=== PATIENT | male | born 1995 | race Caucasian/White ===

== ENCOUNTER 2017-03-24 09:52 | Emergency (ER) | payer OTHER ==
[~2017-03-24] VITALS: Ht 188 cm; Wt 66.0 kg
[2017-03-24 09:55] VITALS: BP 123/74; PULSE 82; RESP 16; TEMP 98.7; O2SAT 100
--- NOTE | 2017-03-24 10:47 | PD ---
HPI Chief Complaint: Cold / Flu Symptoms Time Seen by Provider: 10:39 Travel History International Travel<30 days: No Contact w/Intl Traveler<30days: No Traveled to known affect area: No History of Present Illness HPI Patient comes to the emergency department complaining of cough and congestion that started last night. Patient reports his son and mother are home with similar. Patient denies any fevers, nausea, vomiting, chest pain, headache, sore throat, abdominal pain, shortness of breath, neck pain, or back pain. Patient has not tried anything for this. Denies anything making it better or worse. Denies any pain. PFSH Past Medical History ADHD: Yes Cancer: No Cardiovascular Problems: No Diabetes: No Diminished Hearing: No Psychiatric: Yes (ADHD BY HX) Immunizations Current: Yes Migraines: No Seizures: No Thyroid Disease: No Ulcer: No Influenza Vaccination: No Past Surgical History Appendectomy: No Cholecystectomy: No Social History Alcohol Use: No Tobacco Use: Yes (02/18 PPD) Substance Use: Yes (marijuana) Allergies-Medications (Allergen,Severity, Reaction): Coded Allergies: ziprasidone (Unverified Allergy, Severe, NAUSEA, 03/24/17) Reported Meds & Prescriptions Reported Meds & Active Scripts Active Prednisone 20 Mg Tab 20 Mg PO BID 5 Days Ventolin Hfa 18 GM Inh (Albuterol Sulfate) 90 Mcg/Act Aer 2 Puff INH Q4H PRN Review of Systems Except as stated in HPI: all other systems reviewed are Neg Physical Exam Narrative GENERAL: Well-developed, well nourished, in no acute distress, and non-ill appearing. SKIN: Focused skin assessment warm and dry. HEAD: Atraumatic. Normocephalic. EYES: Pupils equal and round. EOMI. No scleral icterus. No injection or drainage. ENT: No nasal bleeding or discharge. Mucous membranes pink and moist. Tympanic membrane pearly south bilaterally. Posterior pharynx nonerythematous without exudate. Uvula is midline. No tenderness facial sinuses to palpation. NECK: Trachea midline. No cervical lymphadenopathy. Supple. No nuclear rigidity. CARDIOVASCULAR: Regular rate and rhythm. No murmur appreciated. RESPIRATORY: No accessory muscle use. No respiratory distress. Clear to auscultation. Breath sounds equal bilaterally. No coughing noted on exam. Patient speaking in full sentences without difficulty. MUSCULOSKELETAL: No obvious deformities. No clubbing. No cyanosis. No edema. Full range of motion. NEUROLOGICAL: Awake and alert. No obvious cranial nerve deficits. Motor grossly within normal limits. Normal speech. PSYCHIATRIC: Appropriate mood and affect; insight and judgment normal. Data Data Last Documented VS Vital Signs Date Time Temp Pulse Resp B/P (MAP) Pulse Ox O2 Delivery O2 Flow Rate FiO2 03/24/17 10:31 Room Air 03/24/17 09:55 98.7 82 16 123/74 (90) 100 Orders Orders Ed Discharge Order (03/24/17 11:08) [facility] Medical Decision Making Medical Screen Exam Complete: Yes Emergency Medical Condition: Yes Differential Diagnosis Influenza, bronchitis, URI, viral syndrome, allergies Narrative Course Patients symptom complex of cough and congestion is consistent with viral URI. The patient is non-ill appearing and is in no respiratory distress and comfortable. The patient moves air well and oxygen saturations are normal. There is no clinical evidence to suggest pneumonia at this time. Plan of care and management were discussed with the patient who agreed with plan. The patient was instructed to follow up with their physician and instructed to return if worsens, progressively worsening shortness of breath or difficulty breathing, persistent fever, chest pains or discomfort, inability to keep medication or fluids down with or without vomiting, or as needed. Patient in no obvious distress upon re-evaluation. Patient refused flu testing secondary to not wanting having anything stuck up his nose. Patient was asked if they wanted to speak to my attending, which the patient did not wish to do at this time. Any questions/concerns in reference to patient diagnosis/ condition discussed and clarified prior to patient's discharge. Reinforced sheer importance of close follow up with patient's primary physician or primary care clinic. Instructed patient to return to ED immediately, if symptoms return/ worsen. Patient showed understanding of above instructions. Further instructions and recommendations were detailed in discharge paperwork. Patient ambulated without difficulty out of ED at discharge. Diagnosis Primary Impression: Viral URI Referrals: [facility] Patient Instructions: General Instructions, Upper Respiratory Infection (ED) Additional Instructions: Follow-up with your primary care physician in 3-5 days for reevaluation. Take all medication as prescribed. Use [id number] Tylenol and ibuprofen for pain and fever control. Follow instructions on the packaging. Drink plenty of non-caffeinated and nonalcoholic fluids. Return to the emergency department if symptoms get worse. Med/Other Pt SpecificInfo: Prescription(s) given Scripts Prednisone (Prednisone) 20 Mg Tab 20 MG PO BID for 5 Days, #10 TAB 0 Refills Prov: Jeanine Correa MD 03/24/17 Albuterol 18 GM Inh (Ventolin Hfa 18 GM Inh) 90 Mcg/Act Aer 2 PUFF INH Q4H Y for COUGH, #1 INHALER 0 Refills Prov: Jeanine Correa MD 03/24/17 Disposition: 01 DISCHARGE HOME Condition: Stable [place] Chandler Mar 24, 2017 10:47
[2017-03-24] MEDS ORDERED: VENTAER INH (11:09)
[2017-03-24] MEDS ORDERED: PRED20 PO (11:09)
== END 2017-03-24 11:45 | disposition home or self-care (01) ==
LOC: PHED 09:52
DX: J06.9 Acute upper respiratory infection, unspecified (principal); F90.9 Attention-deficit hyperactivity disorder, unspecified type; F17.210 Nicotine dependence, cigarettes, uncomplicated; Z88.8 Allergy status to other drugs, medicaments and biological substances
CPT/HCPCS: 99283

== ENCOUNTER 2017-07-16 20:19 | Emergency (ER) | payer OTHER ==
[~2017-07-16] VITALS: Ht 180.3 cm; Wt 69.8 kg
[~2017-07-16 20:19] MED LIST: PRED20 PO; VENTAER INH
[2017-07-16 20:21] VITALS: BP 129/64; PULSE 83; RESP 16; TEMP 97.9; O2SAT 100
[2017-07-16] MEDS ORDERED: AUGM875T3 PO (20:29)
[2017-07-16] MEDS ORDERED: AMOXICILLIN/CLAVULANATE K 875 MG TAB PO ONE (20:30)
--- NOTE | 2017-07-16 20:38 | PD ---
HPI Chief Complaint: Bite or Sting Time Seen by Provider: 20:25 Travel History International Travel<30 days: No Contact w/Intl Traveler<30days: No Traveled to known affect area: No History of Present Illness HPI 22-year-old male presents emergency department with a dog bite to his right lower extremity that has been present for 2 days. Says that his dog got into a fight with another dog and his dog accidentally bit him resulting in this injury. He to the ED for concern for an area of hardness and he was able to express some fluid today with pressure. In addition, his mom insisted that he come to the emergency department for evaluation. He denies any numbness tingling the extremity. Says the limb is not painful. He says the dog's immunizations are up-to-date. Patient's last tetanus vaccination was approximately 1 year ago. He denies fevers or chills. Denies nausea vomiting or diarrhea. PFSH Past Medical History ADHD: Yes Cancer: No Cardiovascular Problems: No Diabetes: No Diminished Hearing: No Psychiatric: Yes (ADHD BY HX) Immunizations Current: Yes Migraines: No Seizures: No Thyroid Disease: No Ulcer: No Past Surgical History Appendectomy: No Cholecystectomy: No Social History Alcohol Use: No Tobacco Use: Yes (02/18 PPD) Substance Use: Yes (marijuana) Allergies-Medications (Allergen,Severity, Reaction): Coded Allergies: ziprasidone (Verified Allergy, Severe, NAUSEA, 07/16/17) Reported Meds & Prescriptions Reported Meds & Active Scripts Active Review of Systems Except as stated in HPI: all other systems reviewed are Neg Physical Exam Narrative GENERAL: Well-nourished, well-developed patient, in NAD SKIN: Focused skin assessment warm/dry. No rashes or lesions. HEAD: Normocephalic. Atraumatic. EYES: No scleral icterus. No injection or drainage. PERRLA, EOMI THROAT: No pharyngeal injection, exudates, or tonsillar hypertrophy. Airway is patent. NECK: Supple, trachea midline. No JVD or lymphadenopathy. No meningismus. MUSCULOSKELETAL: No cyanosis, or edema. RLE-mid calf with erythema with accompanying bites consistent with patient's history, central area with serosanguineous fluid with some cloudiness easily expressed from the site. No fluctuance. BACK: Nontender without obvious deformity. No CVA tenderness. Data Data Last Documented VS Vital Signs Date Time Temp Pulse Resp B/P (MAP) Pulse Ox O2 Delivery O2 Flow Rate FiO2 07/16/17 20:21 97.9 83 16 129/64 (85) 100 Orders Orders Amoxicil-Clavulanate (Augmentin) (07/16/17 20:30) MDM Medical Decision Making Medical Screen Exam Complete: Yes Emergency Medical Condition: Yes Differential Diagnosis Right lower extremity dog bite, cellulitis, erysipelas, insect bite Narrative Course 22-year-old male presents emergency department with a dog bite to his right lower extremity that has been present for 2 days. Says that his dog got into a fight with another dog and his dog accidentally bit him resulting in this injury. He to the ED for concern for an area of hardness and he was able to express some fluid today with pressure. In addition, his mom insisted that he come to the emergency department for evaluation. He denies any numbness tingling the extremity. Says the limb is not painful. He says the dog's immunizations are up-to-date. Patient's last tetanus vaccination was approximately 1 year ago. He denies fevers or chills. Denies nausea vomiting or diarrhea. Vital signs are stable. Physical exam findings consistent with cellulitis versus developing abscess of the right lower extremity. There is some surrounding erythema but no lymph angiopathic spread. Patient will receive his first dose of Augmentin in the emergency department. Patient will be discharged with Augmentin for outpatient use. Advised to follow up with his PCP. Return to the ED for worsening or persistent symptoms. Diagnosis Primary Impression: Cellulitis Qualified Codes: L03.115 - Cellulitis of right lower limb Additional Impression: Dog bite Qualified Codes: W54.0XXA - Bitten by dog, initial encounter Referrals: Primary Care Physician Additional Instructions: As discussed, apply warm compresses to the leg 15 minutes at time 3-4 times a day to encourage draining from the leg. Cleanse the area thoroughly to reduce the possibility of worsening infection. Start your next dose of antibiotic tomorrow. You received your first dose tonight in the ED. If the area becomes more red, swollen, or painful, return to the ED as this may be a sign of worsening infection. Disposition: 01 DISCHARGE HOME Condition: Stable Katelyn Ureña Jul 16, 2017 20:38
== END 2017-07-16 21:02 | disposition home or self-care (01) ==
LOC: PHEFT 20:19
DX: S81.851A Open bite, right lower leg, initial encounter (principal); L03.115 Cellulitis of right lower limb; W54.0XXA Bitten by dog, initial encounter; F90.9 Attention-deficit hyperactivity disorder, unspecified type; F17.200 Nicotine dependence, unspecified, uncomplicated
CPT/HCPCS: 99283